=== PATIENT | male | born 2000 | race Hispanic/Latino ===

== ENCOUNTER 2020-04-14 10:40 | Emergency (ER) | payer SELFPAY ==
[2020-04-14 11:14] VITALS: BP 152/69
[2020-04-14] MEDS ORDERED: IBUPROFEN 600 MG TAB PO ONE (11:23)
--- NOTE | 2020-04-14 11:27 | Emergency Department Report ---
ED Lower Extremity HPI - General Chief Complaint: Extremity Injury, Lower Stated Complaint: POSSIBLE FX RT KNEE Time Seen by Provider: 04/14/20 11:22 Source: patient Mode of arrival: Ambulatory Limitations: No Limitations - History of Present Illness Initial Comments: 19-year-old male presents to the emergency room for right knee injury. Patient states that he was wrestling and may have hyperextended it. Patient reports that the pain is excruciating and does have some swelling and not able to fully bend. Patient states that he iced it elevated and that she had a knee sleeve. States that it seemed to get better but woke up this morning to it being worst. Patient denies any past medical history of has had no surgeries. No known drug allergies. MD Complaint: knee injury Onset/Timin -: days(s) Injury: Knee: Right (Ambulating with a cane) Type of Injury: hyperextension, hyperflexion Severity scale (0 -10): 4 Improves With: rest Context: other (Wrestling) Associated Symptoms: swelling, able to partially bear weight Treatments Prior to Arrival: cold therapy - Related Data Allergies Allergy/AdvReac Type Severity Reaction Status Date / Time No Known Allergies Allergy Unverified 04/14/20 11:12 ED Review of Systems ROS: Stated complaint: POSSIBLE FX RT KNEE Other details as noted in HPI Comment: All other systems reviewed and negative ED Past Medical Hx - Past Medical History Previous Medical History?: No - Surgical History Past Surgical History?: No ED Physical Exam - General Limitations: No Limitations General appearance: alert, in no apparent distress - Head Head exam: Present: atraumatic, normocephalic - Eye Eye exam: Present: normal appearance - ENT ENT exam: Present: mucous membranes moist - Expanded Lower Extremity Exam Right Hip exam: Present: normal inspection Upper Leg exam: Present: normal inspection, full ROM Knee exam: Present: tenderness, swelling Lower Leg exam: Present: tenderness, swelling Foot/Toe exam: Present: normal inspection, full ROM Neuro vascular tendon exam: Present: no vascular compromise - Back Exam Back exam: Present: normal inspection - Neurological Exam Neurological exam: Present: alert, oriented X3, normal gait - Psychiatric Psychiatric exam: Present: normal affect, normal mood - Skin Skin exam: Present: warm, dry, intact, normal color. Absent: rash ED Course Vital Signs 04/14/20 11:12 Temperature 99.0 F Pulse Rate 105 H Respiratory 18 Rate Blood Pressure 152/69 O2 Sat by Pulse 96 Oximetry ED Lower Extremity MDM - Radiology Data Radiology results: report reviewed [facility] [address] [place] [address] XRay Report Signed Patient: RANDELL COPELAND MR#: [id number] 1 : 2000 Acct:[id number] Age/Sex: 19 / M ADM Date: 04/14/20 Loc: ED Attending Dr: Ordering Physician: ONOFRE KEEN Date of Service: 04/14/20 Procedure(s): XR knee 1-2V RT Accession Number(s): [id number] cc: ONOFRE KEEN Fluoro Time In Minutes: XR knee 1-2V RT INDICATION / CLINICAL INFORMATION: injury rt knee. COMPARISON: None available. FINDINGS: No acute fracture. Normal alignment. Joint spaces are preserved. No destructive osseous lesion or suspicious periosteal reaction. Impression: 1.No acute fracture. Signer Name: Carlos Laurent MD Signed: 04/14/2020 1:50 PM Workstation Name: [id number] Transcribed By: CS Dictated By: Carlos Laurent MD Electronically Authenticated By: Carlos Laurent MD Signed Date/Time: 04/14/20 1350 DD/ 1350 TD/TT: - Medical Decision Making 19-year-old male presents to the emergency room for right knee injury. Patient states that he was wrestling and may have hyperextended it. Patient reports that the pain is excruciating and does have some swelling and not able to fully bend. Patient states that he iced it elevated and that she had a knee sleeve. States that it seemed to get better but woke up this morning to it being worst. Patient denies any past medical history of has had no surgeries. No known drug allergies. X-ray of right knee has been ordered ibuprofen 600 mg have been ordered for pain management. Critical care attestation.: If time is entered above; I have spent that time in minutes in the direct care of this critically ill patient, excluding procedure time. ED Disposition Clinical Impression: Right knee injury Disposition: DC-01 TO HOME OR SELFCARE Is pt being admited?: No Does the pt Need Aspirin: No Condition: Stable Instructions: Knee Sprain, Adult, [id number] Additional Instructions: X-ray was negative for any acute dislocation fracture or effusion. I recommend to use crutches knee immobilizer and follow-up with an orthopedic provider if your symptoms persist or gets worse. Tylenol or ibuprofen as needed for pain management. Be sure to increase your fluid intake while taking ibuprofen. Referrals: PRIMARY CARE, [Primary Care Provider] - 3-5 Days [facility] [Provider Group] - 3-5 Days Forms: Work/School Release Form(ED)
--- NOTE | 2020-04-14 13:55 | XRay Report ---
XR knee 1-2V RT INDICATION / CLINICAL INFORMATION: injury rt knee. COMPARISON: None available. FINDINGS: No acute fracture. Normal alignment. Joint spaces are preserved. No destructive osseous lesion or s uspicious periosteal reaction. Impression: 1.No acute fracture. Signer Name: Carlos Laurent MD Signed: 04/14/2020 1:50 PM Workstation Name: [id number]
== END 2020-04-14 17:30 | disposition home or self-care (01) ==
LOC: ED 10:40
DX: S89.91XA Unspecified injury of right lower leg, initial encounter (principal); Z79.899 Other long term (current) drug therapy; X58.XXXA Exposure to other specified factors, initial encounter; Y93.89 Activity, other specified; Y92.89 Other specified places as the place of occurrence of the external cause; Y99.8 Other external cause status
CPT/HCPCS: 99282